=== PATIENT | male | born 1945 | race Caucasian/White ===

== ENCOUNTER 2016-12-07 11:54 | Observation (INO) | payer MEDICAID, MEDICARE, OTHER ==
[~2016-12-07] VITALS: Ht 177.8 cm; Wt 85.0 kg
[~2016-12-07 11:54] MED LIST: ASPI81TA82 PO; ATEN1TAB73 PO; CENTTAB9 PO; CEPH250T PO; COEN400C PO; FISH500C PO; LISI-357 PO; SIMV20TA PO; VITA200017 PO
[2016-12-07 11:55] VITALS: BP 133/71; PULSE 52; RESP 12; TEMP 97.6; O2SAT 98
--- NOTE | 2016-12-07 13:40 | RADRPT ---
EXAM DATE/TIME: 12/07/2016 12:59 [facility] COMPARISON: CHEST SINGLE AP, December 26, 2012, 12:15. INDICATIONS : Chest pain. MEDICAL HISTORY : Myocardial infarction. SURGICAL HISTORY : CABG. ENCOUNTER: Initial ACUITY: 1 day PAIN SCORE: 11/01 LOCATION: Bilateral chest FINDINGS: A single AP erect portable view of the chest was obtained and again demonstrates the patient status p ost median sternotomy for bypass grafting procedure. There are no confluent infiltrates or effusions. The heart and mediastinal structures remain within normal limits with no perihilar edema. The bony t horax is otherwise intact. CONCLUSION: Stable appearance with no acute cardiac pulmonary disease status post bypass grafting procedure. Michael Reed MD on December 07, 2016 at 13:36 Board Certified Radiologist. This report was verified electronically.
[2016-12-07 14:32] VITALS: O2SAT 99
[2016-12-07 14:33] VITALS: BP 125/62; PULSE 46; RESP 16; O2SAT 99
[2016-12-07] MEDS ORDERED: SIMV10TA PO (14:37)
[2016-12-07] MEDS ORDERED: LISI-519 PO (14:37)
[2016-12-07] MEDS ORDERED: ASPI81CH PO (14:37)
[2016-12-07] MEDS ORDERED: ATEN50TA PO (14:37)
[2016-12-07 14:42] LABS: AUTOMATED NEUTROPHIL # 5.3 TH/MM3 (1.8-7.7); BASOPHIL # 0.1 TH/MM3 (0-0.2); BASOPHIL % 1.2 % (0.0-2.0); EOSINOPHIL # 0.5 TH/MM3 (0-0.4); EOSINOPHIL % 6.3 % (0.0-4.0); HEMO FLAGS DIFF FINAL; LYMPH % 18.5 % (9.0-44.0); LYMPHOCYTE # 1.5 TH/MM3 (1.0-4.8); MEAN CELL VOLUME 91.1 FL (80.0-100.0); MEAN CORPUSCULAR HEMOGLOBIN 31.2 PG (27.0-34.0); MEAN CORPUSCULAR HGB CONC 34.3 % (32.0-36.0); MONO % 7.9 % (0.0-8.0); NEUT % 66.1 % (16.0-70.0); PLATELET COUNT 252 TH/MM3 (150-450); RED BLOOD COUNT 4.71 MIL/MM3 (4.50-5.90); RED CELL DISTRIBUTION WIDTH 14.2 % (11.6-17.2)
[2016-12-07 14:55] LABS: ANION GAP 5 MEQ/L (5-15); BICARBONATE 27.8 MEQ/L (21.0-32.0); BLOOD UREA NITROGEN 9 MG/DL (7-18); CHLORIDE 100 MEQ/L (98-107); GLOMERULAR FILTRATION RATE 86 ML/MIN (>89); POTASSIUM 4.1 MEQ/L (3.5-5.1); SODIUM (NA) 133 MEQ/L (136-145)
--- NOTE | 2016-12-07 14:59 | PD ---
HPI Chief Complaint: Chest Pain Time Seen by Provider: 14:31 Travel History International Travel<30 days: No Contact w/Intl Traveler<30days: No Traveled to known affect area: No History of Present Illness HPI This is a 71-year-old male who has a history of CABG who presents to the emergency department with chest pain that's been going on for 1 week, intermittent, dull, feeling "low-grade" associated with some shortness of breath yesterday and increasing weakness and dyspnea on exertion. Patient reports his last stress test was several years ago. He took a nitroglycerin today but it didn't help. He took 162 of aspirin and came to the emergency department. He follows with Dr. Patel'sMarie [facility] Past Medical History Hx Anticoagulant Therapy: No Arthritis: No Asthma: No Autoimmune Disease: No Blood Disorders: No Anxiety: No Depression: No Heart Rhythm Problems: No Cancer: No Cardiac Catheterization: Yes Cardiovascular Problems: Yes High Cholesterol: Yes Chemotherapy: No Chest Pain: Yes Congestive Heart Failure: No COPD: No Cerebrovascular Accident: No Diabetes: No Diminished Hearing: No Endocrine: No Gastrointestinal Disorders: Yes GERD: Yes Glaucoma: No Genitourinary: Yes Headaches: No Hepatitis: No Hiatal Hernia: No Hypertension: Yes Immune Disorder: No Kidney Stones: Yes Musculoskeletal: No Neurologic: No Psychiatric: No Reproductive: No Respiratory: No Myocardial Infarction: Yes Radiation Therapy: No Renal Failure: No Seizures: No Sickle Cell Disease: No Sleep Apnea: No Thyroid Disease: No Ulcer: No Past Surgical History Abdominal Surgery: No AICD: No Appendectomy: No Arteriovenous Shunt: No Cardiac Surgery: Yes (CATH 2005, QUADRUPLE BYPASS) Cholecystectomy: No Coronary Artery Bypass Graft: Yes Ear Surgery: No Endocrine Surgery: No Eye Surgery: No Genitourinary Surgery: No Gynecologic Surgery: No Insulin Pump: No Joint Replacement: No Oral Surgery: No Pacemaker: No Thoracic Surgery: No Other Surgery: Yes (CARDIAC CATH) Family History Family Myocardial Infarction: Yes Social History Alcohol Use: Yes (OCC) Tobacco Use: Yes (1-2 PPD) Substance Use: No Allergies-Medications (Allergen,Severity, Reaction): Coded Allergies: Codeine (Verified Adverse Reaction, Severe, CAUSES HALLUCINATIONS, 12/07/16 ) Reported Meds & Prescriptions Reported Meds & Active Scripts Active Reported Aspirin 81 Mg Chew 81 Mg PO ONCE Lisinopril 5 Mg Tab 5 Mg PO DAILY Atenolol 50 Mg Tab 50 Mg PO DAILY Simvastatin 10 Mg Tab 10 Mg PO DAILY Review of Systems Except as stated in HPI: all other systems reviewed are Neg Physical Exam Narrative GENERAL:Well appearing, no acute distress SKIN: Warm and dry. HEAD: Atraumatic. Normocephalic. EYES: Pupils equal and round. No injection or drainage. ENT: Moist mucous membranes NECK: Trachea midline. CARDIOVASCULAR: Regular rate and rhythm. No murmur appreciated. RESPIRATORY: Clear to auscultation. Breath sounds equal bilaterally. GASTROINTESTINAL: Abdomen soft, non-tender, nondistended. MUSCULOSKELETAL: No obvious deformities. NEUROLOGICAL: Awake and alert. No obvious cranial nerve deficits. Moving all extremities. PSYCHIATRIC: Appropriate mood and affect; insight and judgment normal. Data Data Last Documented VS Vital Signs Date Time Temp Pulse Resp B/P Pulse Ox O2 Delivery O2 Flow Rate FiO2 12/07/16 14:34 46 16 99 Room Air 12/07/16 14:33 125/62 12/07/16 11:55 97.6 Orders Electrocardiogram (12/07/16 12:35) Complete Blood Count With Diff (12/07/16 12:35) Basic Metabolic Panel (Bmp) (12/07/16 12:35) Ckmb (Isoenzyme) Profile (12/07/16 12:35) Troponin I (12/07/16 12:35) Chest, Single Ap (12/07/16 12:35) Iv Access Insert/Monitor (12/07/16 12:35) Ecg Monitoring (12/07/16 12:35) Oxygen Administration (12/07/16 12:35) Oximetry (12/07/16 12:35) Admit Order (Ed Use Only) (12/07/16 15:18) Labs Laboratory Tests Test 12/07/16 14:12 White Blood Count 8.0 TH/MM3 Red Blood Count 4.71 MIL/MM3 Hemoglobin 14.7 GM/DL Hematocrit 43.0 % Mean Corpuscular Volume 91.1 FL Mean Corpuscular Hemoglobin 31.2 PG Mean Corpuscular Hemoglobin 34.3 % Concent Red Cell Distribution Width 14.2 % Platelet Count 252 TH/MM3 Mean Platelet Volume 8.0 FL Neutrophils (%) (Auto) 66.1 % Lymphocytes (%) (Auto) 18.5 % Monocytes (%) (Auto) 7.9 % Eosinophils (%) (Auto) 6.3 % Basophils (%) (Auto) 1.2 % Neutrophils # (Auto) 5.3 TH/MM3 Lymphocytes # (Auto) 1.5 TH/MM3 Monocytes # (Auto) 0.6 TH/MM3 Eosinophils # (Auto) 0.5 TH/MM3 Basophils # (Auto) 0.1 TH/MM3 CBC Comment DIFF FINAL Differential Comment Sodium Level 133 MEQ/L Potassium Level 4.1 MEQ/L Chloride Level 100 MEQ/L Carbon Dioxide Level 27.8 MEQ/L Anion Gap 5 MEQ/L Blood Urea Nitrogen 9 MG/DL Creatinine 0.87 MG/DL Estimat Glomerular Filtration 86 ML/MIN Rate Random Glucose 100 MG/DL Calcium Level 9.1 MG/DL Total Creatine Kinase 44 U/L Troponin I LESS THAN 0.02 NG/ML MDM Medical Decision Making Medical Screen Exam Complete: Yes Emergency Medical Condition: Yes Interpretation(s) Afebrile, bradycardia EKG: Sinus bradycardia, Q waves in the inferior leads, no ST changes Differential Diagnosis Acute coronary syndrome, pulmonary embolism, unstable angina, arrhythmia Narrative Course This is a 71-year-old male who has a history of CABG in the past presents the emergency department with 1 week of chest pain which is associated with exertion and some shortness of breath. EKG demonstrates sinus bradycardia which may be in the setting of the patient's beta bigg but is otherwise nonischemic. He was placed on a monitor and an IV was established. He had taken 162 mg of aspirin at home. Initial troponin is normal and chest x-rays reassuring. I think the patient can be admitted to the chest pain center for serial cardiac enzymes and risk stratification. Diagnosis Primary Impression: Chest pain Qualified Code: R07.9 - Chest pain, unspecified type Admitting Information Admitting Physician Requests: Observation Suma Franco MD Dec 07, 2016 14:59
[2016-12-07 15:10] LABS: CREATINE KINASE 44 U/L (39-308)
[2016-12-07] MEDS ORDERED: ONDANSETRON HCL 4 MG/2 ML VIAL IV PRN (16:15)
[2016-12-07] MEDS ORDERED: ACETAMINOPHEN 500 MG CPLT PO PRN (16:15)
[2016-12-07] MEDS ORDERED: SODIUM CHLORIDE 0.9% FLUSH 5 ML FLUSH IVF PRN (16:15)
[2016-12-07] MEDS ORDERED: NITROGLYCERIN 0.4 MG SL 25 TABS/BTL SL PRN (16:15)
[2016-12-07 17:44] VITALS: BP 127/64; PULSE 56; RESP 18; O2SAT 99
[2016-12-07 18:12] LABS: CREATINE KINASE 36 U/L (39-308)
--- NOTE | 2016-12-07 18:55 | HHI.HP ---
HPI Primary Care Physician Deborah Ledezma MD Chief Complaint Chest pain History of Present Illness 71-year-old male with known coronary artery disease and onset of chest pain 6 days ago. States daily he has required his nitroglycerin tablets. Location is left anterior chest described as a "sharp pain". Today's chest discomfort was accompanied with radiation to his left arm. Duration "hours." No associated symptoms with pain however endorses SOB over the past week. No known precipitating or relieving factors. Chest pain is nonexertional and is unchanged with breathing. Has been coughing white phlegm. [employer] is Dr. Carr. Review of Systems General: No fatigue,weakness, fever, chills, or recent illness HEENT: No CHESTER, no vision changes, no nasal congestion or drainage, no dysphasia CV: No current chest discomfort. Otherwise as stated above. Denies palpitations, intermittent leg pain, or dizziness RESP: No SOB, wheeze, hemoptysis. Continues to smoke, coughs "white phlegm" GI: No nausea or vomiting, bowel changes, diarrhea, constipation, pain, distention. : No dysuria, urgency, frequency EXT: No lower leg edema, MS: No discomfort or change in ROM, past week and intermittent bilateral leg pain NEURO: No change in memory, dizziness, difficulty with balance, LOC, motor/ sensory deficits SKIN: No rashes, no concerning lesions Past Family Social History Allergies: Coded Allergies: Codeine (Verified Adverse Reaction, Severe, CAUSES HALLUCINATIONS, 12/07/16 ) Past Medical History Coronary artery disease Shingles Past Surgical History CABG [id number] Reported Medications Reported Meds & Active Scripts Active Reported Aspirin 81 Mg Chew 81 Mg PO ONCE Lisinopril 5 Mg Tab 5 Mg PO DAILY Atenolol 50 Mg Tab 50 Mg PO DAILY Simvastatin 10 Mg Tab 10 Mg PO DAILY Active Ordered Medications Current Medications Medications (Trade) Dose Ordered Sig/Malik Route Start Time Stop Time Status Last Admin (Tylenol) 500 mg Q4H PRN PO 12/07/16 16:15 (Zofran Inj) 4 mg Q6H PRN IV 12/07/16 16:15 (Nitrostat Sl) 0.4 mg Q5M PRN SL 12/07/16 16:15 (Aspirin) 325 mg DAILY PO 12/08/16 09:00 (Tenormin) 50 mg DAILY PO 12/08/16 09:00 (Prinivil) 5 mg DAILY PO 12/08/16 09:00 (Pravachol) 20 mg DAILY PO 12/08/16 09:00 Social History He is a current smoker smokes 1-1/2 pack of cigarettes daily for most of his adult life. Denies any alcohol or illegal drug use. Past Cardiac Testing No recent stress testing. His [employer]-Dr. Carr Physical Exam Vital Signs Vital Signs Date Time Temp Pulse Resp B/P Pulse Ox O2 Delivery O2 Flow Rate FiO2 12/07/16 17:44 56 18 127/64 99 Room Air 12/07/16 14:34 46 16 99 Room Air 12/07/16 14:33 46 16 125/62 99 Room Air 12/07/16 14:32 99 Room Air 12/07/16 14:32 99 Room Air 12/07/16 11:55 97.6 52 12 133/71 98 Room Air Physical Exam GENERAL: Alert WN, WD, NAD, pleasant, male HEAD: NC, AT EYES: Sclera clear, conjunctiva without injection, pupils equal and round ENT: Mucous membranes pink and moist NECK: Supple, no masses, trachea midline CV: RRR, without murmur, rub, gallop, no JVD, S1-S2 no S3-S4. RESP: Clear lungs throughout bilateral, no crackles, wheeze, rhonchi, symmetrical chest rise, nonlabored, able to speak in full sentences ABD: Soft, NT, ND, no masses, positive bowel tones EXT: Pulses +24, no dependent edema MS: Normal tone 4 extremities, nontender, no obvious deformities, full range of motion NEURO: CN II through CN XII grossly intact, motor strength 5/5, gait WNL PSYCH: A+O 3, pleasant affect, appropriate speech, appropriate mood and affect , insight and judgment SKIN: Normal turgor, normal texture, no lesions, no rashes Laboratory Laboratory Tests Test 12/07/16 12/07/16 14:12 17:13 White Blood Count 8.0 Red Blood Count 4.71 Hemoglobin 14.7 Hematocrit 43.0 Mean Corpuscular Volume 91.1 Mean Corpuscular Hemoglobin 31.2 Mean Corpuscular Hemoglobin 34.3 Concent Red Cell Distribution Width 14.2 Platelet Count 252 Mean Platelet Volume 8.0 Neutrophils (%) (Auto) 66.1 Lymphocytes (%) (Auto) 18.5 Monocytes (%) (Auto) 7.9 Eosinophils (%) (Auto) 6.3 Basophils (%) (Auto) 1.2 Neutrophils # (Auto) 5.3 Lymphocytes # (Auto) 1.5 Monocytes # (Auto) 0.6 Eosinophils # (Auto) 0.5 Basophils # (Auto) 0.1 CBC Comment DIFF FINAL Differential Comment Sodium Level 133 Potassium Level 4.1 Chloride Level 100 Carbon Dioxide Level 27.8 Anion Gap 5 Blood Urea Nitrogen 9 Creatinine 0.87 Estimat Glomerular Filtration 86 Rate Random Glucose 100 Calcium Level 9.1 Total Creatine Kinase 44 36 Troponin I LESS THAN 0.02 LESS THAN 0.02 Result Diagram: 12/07/16 1412 12/07/16 1412 Imaging Last Impressions Chest X-Ray 12/07/16 1235 Signed Impressions: Service Date/Time: Wednesday, December 07, 2016 12:59 - CONCLUSION: Stable appearance with no acute cardiac pulmonary disease status post bypass grafting procedure. Michael Reed MD Course EKG First EKG shows normal sinus bradycardic rhythm, Q waves in leads III and aVF Assessment and Plan Assessment and Plan #1 chest painpatient admitted to chest pain center. Will undergo 3 sets of EKGs and cardiac enzymes. Will monitor overnight. Was seen and evaluated by Dr. Josh Rich and discussed with patient if he has ruled out with EKG Cardiac enzymes at the next step would be a chemical stress test. Patient is agreeable to this plan of care. Further disposition to follow. #2 tobacco usehe has been strongly encouraged the importance of tobacco sensation in encouraged to quit smoking. Savanna Grijalva Dec 07, 2016 18:55
[2016-12-07 19:51] VITALS: BP 143/69; PULSE 66; RESP 21; TEMP 98.7; O2SAT 97
[2016-12-07 20:35] VITALS: PULSE 48
[2016-12-07] MEDS: SODIUM CHLORIDE 0.9% FLUSH 5 ML FLUSH IVF SCH (20:35)
[2016-12-07 21:45] LABS: CREATINE KINASE 43 U/L (39-308)
[2016-12-08] VITALS (8 sets, daily range): BP systolic 115–127; BP diastolic 52–68; PULSE 46–77; RESP 16–21; TEMP 97.4–98.7; O2SAT 94–99
[2016-12-08] MEDS ORDERED: REGADENOSON INJ 0.4 MG/5 ML SYR ONE (08:57)
[2016-12-08] MEDS ORDERED: ASPIRIN 325 MG TAB PO SCH (09:00)
[2016-12-08] MEDS ORDERED: LISINOPRIL 5 MG TAB PO SCH (09:00)
[2016-12-08] MEDS ORDERED: PRAVASTATIN SOD 20 MG TAB PO SCH (09:00)
[2016-12-08] MEDS ORDERED: ATENOLOL 50 MG TAB PO SCH (09:00)
[2016-12-08] MEDS ORDERED: AMINOPHYLLINE INJ 250 MG/10 ML VIAL ONE (10:37)
[2016-12-08] MEDS: SODIUM CHLORIDE 0.9% FLUSH 5 ML FLUSH IVF SCH (11:22)
--- NOTE | 2016-12-08 11:42 | RADRPT ---
EXAM DATE/TIME: 12/08/2016 09:12 [facility] COMPARISON: No previous studies available for comparison. INDICATIONS : Left chest pain with dyspnea. Angina. DOSE: 27.3 mCi Tc99m Myoview at stress. 8.6 mCi Tc99m Myoview at rest. 0.4 mg Lexiscan STRESS SYMPTOMS: Dyspnea and stomach pain. MEDICATIONS: 1.) 100 mg Aminophylline IV EJECTION FRACTION: 59% MEDICAL HISTORY : Cardiovascular disease. Hypertension. Smoker. SURGICAL HISTORY : CABG ENCOUNTER: Initial ACUITY: 1 day PAIN SCALE: 1/10 LOCATION: Bilateral chest TECHNIQUE: The patient underwent pharmacologic stress with infusion of prescribed dose. Continuous ECG tracing was monitored during stress. Gated SPECT imaging was performed after stress and conventional SPECT i maging was performed at rest. The examination was performed on a SPECT/CT scanner, both attenuation and non-corrected datasets were reviewed. FINDINGS: DISTRIBUTION: The maximum perfused segment at stress is in the anterior wall. PERFUSION STUDY: The pattern of perfusion at stress is within normal limits. GATED STUDY: There is intact wall motion and thickening without hypokinetic or dyskinetic segments. CONCLUSION: 1. No significant reversibility to suggest ischemia. 2. Ejection fraction within normal limits at 59% on today's exam. RISK CATEGORY: Low (<1% Annual Mortality Rate) Eugene Vila MD on December 08, 2016 at 11:35 Board Certified Radiologist. This report was verified electronically.
--- NOTE | 2016-12-08 11:46 | HHI.DCPOC ---
Discharge Care Plan Diagnosis: (1) Atypical chest pain (2) Hx of coronary artery disease Goals to Promote Your Health * To prevent worsening of your condition and complications * To maintain your health at the optimal level Directions to Meet Your Goals Take your medications as prescribed Follow your dietary instruction Follow activity as directed Keep your appointments as scheduled Take your immunizations and boosters as scheduled If your symptoms worsen call your PCP, if no PCP go to Urgent Care Center or Emergency Room Smoking is Dangerous to Your Health. Avoid second hand smoke Call the 24-hour hour crisis hotline for domestic abuse at Savanna Grijalva Dec 08, 2016 11:45
--- NOTE | 2016-12-09 16:52 | EKG ---
Date Performed: 12/07/2016 Time Performed: 21:59:44 PTAGE: 71 years EKG: SINUS BRADYCARDIA MARKED LEFT AXIS DEVIATION NONSPECIFIC T-WAVE ABNORMALITY ABNORMAL ECG PREVIOUS TRACING : 12/07/2016 17.21 Since previous tracing, no significant change noted DOCTOR: Josh Rich Interpretating Date/Time 12/09/2016 16:50:30
--- NOTE | 2016-12-09 16:54 | EKG ---
Date Performed: 12/07/2016 Time Performed: 17:21:35 PTAGE: 71 years EKG: SINUS BRADYCARDIA LEFT ANTERIOR FASCICULAR BLOCK INFERIOR MYOCARDIAL INFARCTION ABNORMAL EC G INTERPRETATION BASED ON A DEFAULT AGE OF 40 YEARS PREVIOUS TRACING : 12/07/2016 14.11 Since previous tracing, no significant change noted DOCTOR: Josh Rich Interpretating Date/Time 12/09/2016 16:51:30
--- NOTE | 2016-12-09 16:55 | EKG ---
Date Performed: 12/07/2016 Time Performed: 14:11:19 PTAGE: 71 years EKG: SINUS BRADYCARDIA INCOMPLETE RIGHT BUNDLE BRANCH BLOCK INFERIOR MYOCARDIAL INFARCTION ABNOR MAL ECG PREVIOUS TRACING : 12/26/2012 18.25 Since previous tracing, no significant change noted DOCTOR: Josh Rich Interpretating Date/Time 12/09/2016 16:52:42
--- NOTE | 2016-12-09 17:12 | TR ---
Date Performed: 12/08/2016 Time Performed: 10:06:47 DOCTOR: Josh Rich DRUG LIST: CLINICAL HISTORY: REASON FOR TEST: REASON FOR ENDING: OBSERVATION: CONCLUSION: Lexiscan stress test was performed under standard four minute protocol. Radionuclid e was injected one minute prior to ending the test. No electrocardiographic abormalities were present to suggest ischemia. Nuclear imaging and interpretation are pending. COMMENTS:
== END 2016-12-08 15:16 | disposition home or self-care (01) ==
LOC: NEPE 11:54 → NEDA 15:20 → NEPFCDU 17:47
PROVIDERS: ADMIT Internal Medicine Cardiovascular Disease; ATTEND Internal Medicine Cardiovascular Disease
DX: R07.89 Other chest pain (principal); R00.1 Bradycardia, unspecified; I25.10 Atherosclerotic heart disease of native coronary artery without angina pectoris; I10 Essential (primary) hypertension; I25.2 Old myocardial infarction; K21.9 Gastro-esophageal reflux disease without esophagitis; E78.00 Pure hypercholesterolemia, unspecified; Z72.0 Tobacco use; Z95.1 Presence of aortocoronary bypass graft; Z87.442 Personal history of urinary calculi
CPT/HCPCS: 71010; 78452; 80048; 82550; 84484; 85025; 93005; 93017; 99285; A9502; G0378; J0280; J2785